=== PATIENT | male | born 1980 | race Two or more races ===

== ENCOUNTER 2021-10-18 19:52 | Emergency (ER) | payer MEDICAID, OTHER ==
[~2021-10-18] VITALS: Ht 175.3 cm; Wt 77.1 kg
[2021-10-19 07:17] VITALS: BP 145/90
[2021-10-19] MEDS ORDERED: IBUP800T27 PO (07:21)
== END 2021-10-19 07:30 | disposition home or self-care (01) ==
LOC: ER 19:55
DX: M23.91 Unspecified internal derangement of right knee (principal)
CPT/HCPCS: 73562

== ENCOUNTER 2023-09-26 17:43 | Emergency (ER) | payer MEDICAID ==
[~2023-09-26] VITALS: Ht 175.3 cm; Wt 84.2 kg
[~2023-09-26 17:43] MED LIST: IBUP-1456 PO
[2023-09-26 18:23] VITALS: BP 138/82; PULSE 70; RESP 16; TEMP 97.3; O2SAT 97
== END 2023-09-26 20:12 | disposition home or self-care (01) ==
LOC: ER 17:43
DX: M54.6 Pain in thoracic spine (principal)
CPT/HCPCS: 71046

== ENCOUNTER 2023-10-13 18:11 | Emergency (ER) | payer MEDICAID ==
[~2023-10-13] VITALS: Ht 175.3 cm; Wt 83.5 kg
[2023-10-13] MEDS ORDERED: DexAMETHasone SOD PHOS 10MG/1ML VIAL INJ IM ONE (20:30)
[2023-10-13] MEDS ORDERED: HYDROcodone-ACET 5/325MG TAB PO ONE (20:30)
[2023-10-13] MEDS ORDERED: TRIO1TP EX (20:34)
[2023-10-13] MEDS ORDERED: VALA1TAB34 PO (20:34)
[2023-10-13] MEDS ORDERED: HYDR-4902 PO (20:34)
[2023-10-13] MEDS ORDERED: DIPH25CA66 PO (20:34)
[2023-10-13 21:14] VITALS: BP 115/78; PULSE 71; RESP 16; TEMP 98; O2SAT 97
== END 2023-10-13 21:15 | disposition home or self-care (01) ==
LOC: ER 18:11
DX: R21 Rash and other nonspecific skin eruption (principal); B02.9 Zoster without complications; Z79.1 Long term (current) use of non-steroidal anti-inflammatories (NSAID)
CPT/HCPCS: 96372; 99283; J1100

== ENCOUNTER 2023-11-30 16:07 | Emergency (ER) | payer MEDICAID ==
[~2023-11-30] VITALS: Ht 175.3 cm; Wt 84.0 kg
[~2023-11-30 16:07] MED LIST changes: +DIPH25CA66 PO; +HYDR-4902 PO; +TRIO1TP EX; +VALA1TAB34 PO
[2023-11-30 17:57] LABS: COVID19 ANTIGEN SOFIA FIA NEGATIVE (NEGATIVE)
[2023-11-30 18:00] LABS: Rapid Influenza A Negative (Negative); Rapid Influenza B Negative (Negative)
[2023-11-30] MEDS ORDERED: BENZ100C97 PO (19:02)
[2023-11-30 19:13] VITALS: BP 147/98; PULSE 70; RESP 18; TEMP 97.6; O2SAT 70
== END 2023-11-30 19:13 | disposition home or self-care (01) ==
LOC: ER 16:07
DX: J40 Bronchitis, not specified as acute or chronic (principal); Z20.822 Contact with and (suspected) exposure to COVID-19
CPT/HCPCS: 36415; 87426; 87804

== ENCOUNTER 2024-11-27 19:05 | Emergency (ER) | payer MEDICAID ==
[~2024-11-27] VITALS: Ht 175.3 cm; Wt 83.7 kg
[~2024-11-27 19:05] MED LIST changes: +BENZ100C97 PO
--- NOTE | 2024-11-27 19:43 | ED.PDOC ---
GI ASSESSMENT HPI Comments 43 year old male came to ER due to abdominal pain. Patient denies any medical problems or any history of abdominal surgeries. States he has been having recurring episodes of LUQ, LLQ abdominal pain for the past 2 months, when it occurs it is a constant pain, aggravtaed by walking and movements, lasting about 2 weeks before resolving spontaneously. No check ups were done. For the past few days, recurrence of LUQ, LLQ pain, associated with nausea and diarrhea (2 days ago). He denies any recent trauma or urinary symptoms. Chief Complaint: Abdominal Pain Time Seen by MD: 19:41 Primary Care Provider: UNKNOWN Reviewed Notes: Nurses Notes Allergies: Coded Allergies: NO KNOWN ALLERGIES (Unverified , 10/18/21) Home Meds Active Scripts Benzonatate (Benzonatate) 100 Mg Cap, 1 CAP PO TID, #30 CAP Prov:ARYA PATINO PAC 11/30/23 Triamcinolone Acetonide (Triamcinolone Acetonide) 0.1 % Cre, 1 APPLIC EX BID for 14 Days, #15 MG apply to the affected area Prov:ALONZO AVERY Q SUPERVISING ARCHITECT 10/13/23 Diphenhydramine Hcl (Benadryl Allergy) 25 Mg Cap, 1 CAP PO Q6HPRN PRN, #30 CAP 1 Refill as needed for itching Prov:ALONZO AVERY Q SUPERVISING ARCHITECT 10/13/23 Hydrocodone-Acetaminophen (Hydrocodone Bitartrate/AC 5-325 mg) 1 Tab Tab, 1 TAB PO Q6HPRN PRN, #10 TAB as needed for pain Prov:ALONZO AVERY Q SUPERVISING ARCHITECT 10/13/23 Valacyclovir HCl (Valacyclovir HCl) 1 Gm Tab, 1 GM PO BID for 10 Days, #20 TAB Prov:ALONZO AVERY Q SUPERVISING ARCHITECT 10/13/23 Ibuprofen (Ibuprofen) 800 Mg Tab, 800 MG PO Q8HP PRN for 10 Days, #30 TAB Prov:DAMEON HERRERA 10/19/21 Information Source: Patient Mode of Arrival: Ambulatory Timing: Weeks Duration: Intermittent Quality: Cramping, Sharp, Stabbing Vomitus: None Stool: Loose, Watery Severity: Moderate Pain Location: LUQ, LLQ Associated sign and symptoms: Nausea, Diarrhea, Abdominal Pain Review of Systems REVIEW OF SYSTEMS: No fever, no chills, or fatigue HEENT: No sore throat, no earache, no congestion, no neck pain. Cardiac: No chest pain. No palpitations. Lungs: No shortness of breath, no cough. GI: (+) nausea, no vomiting, (+) diarrhea, no constipation, (+) left sided abdominal pain : No dysuria, frequency, or urgency. No hematuria. Musculoskeletal: No joint pain , no joint swelling, no extremity edema. Skin: No rash, no itching. Neuro: No headache, no dizziness, no weakness Vital Signs Vital Signs Date Time Temp Pulse Resp B/P (MAP) Pulse Ox O2 Delivery O2 Flow Rate FiO2 11/27/24 22:00 97.8 61 18 149/80 (103) 95 97.8 11/27/24 22:00 Room Air 11/27/24 20:15 0 21 Physical Exam General: Awake, alert and oriented. No acute distress. Skin: Skin in warm, dry and intact. Appropriate color for ethnicity. Nailbeds pink with no cyanosis. HEENT: The head is normocephalic and atraumatic. Conjunctivae are clear without exudates or hemorrhage. Sclera is non-icteric. EOM are intact. No signs of nystagmus. Eyelids are normal in appearance without swelling or lesions. Oral mucosa is pink and moist Neck: The neck is supple with normal range of motion. No JVD. Cardiac: Heart rate and rhythm are normal. No murmurs, gallops, or rubs are auscultated. Respiratory: No signs of respiratory distress. Lung sounds are clear in all lobes bilaterally without rales, ronchi, or wheezes. Abdominal: Abdomen is soft, non-tender without distention. Bowel sounds are present and normoactive in all four quadrants. Extremities: Upper and lower extremities are atraumatic in appearance without deformity or edema. Neurological: The patient is awake, alert and oriented to person, place, and time with normal speech. Speech is clear. There is no facial asymmetry. Psychiatric: Appropriate mood and affect. Good judgement and insight. No visual or auditory hallucinations. Past Medical History PAST MEDICAL HISTORY: Denies Surgical History: Denies all surgeries Family History Family History: Reviewed,noncontributory to illness Social History Smoker: Non-Smoker Alcohol: Denies ETOH Use Drugs: Denies Drug Use Lives In: Home Was a procedure done? Was a procedure done?: No GI differential Dx Differential Diagnosis: Constipation, Diverticular disease, Gastritis/PUD, Gastroenteritis, Hernia, Pancreatitis, UTI, Urolithiasis, Electrolyte Imbalance, Food Poisoning X-Ray, Labs, Meds, VS Vital Signs Date Time Temp Pulse Resp B/P (MAP) Pulse Ox O2 Delivery O2 Flow Rate FiO2 11/27/24 22:00 97.8 61 18 149/80 (103) 95 97.8 11/27/24 22:00 61 18 95 Room Air 11/27/24 20:15 73 14 97 Room Air* 0 21 11/27/24 20:15 98.4 73 14 159/99 (119) 97 98.4 11/27/24 19:28 98.6 63 16 166/106 (126) 98 98.6 Lab Test 11/27/24 19:55 11/27/24 19:32 Range/Units White Blood Count 6.8 4.4-10.8 10^3/uL Red Blood Count 5.28 4.5-5.90 10^6/uL Hemoglobin 16.0 13.5-17.5 g/dL Hematocrit 46.8 41.0-53.0 % Mean Corpuscular Volume 88.6 80.0-100.0 fL Mean Corpuscular Hemoglobin 30.3 28.0-32.0 pg Mean Corpuscular Hemoglobin Concent 34.2 32.0-36.0 g/dL Red Cell Distribution Width 13.7 11.8-14.3 % Platelet Count 156 140-450 10^3/uL Mean Platelet Volume 10.9 H 6.9-10.8 fL Neutrophils (%) (Auto) 62.1 37.0-80.0 % Lymphocytes (%) (Auto) 28.6 10.0-50.0 % Monocytes (%) (Auto) 7.1 0.0-12.0 % Eosinophils (%) (Auto) 1.6 0.0-7.0 % Basophils (%) (Auto) 0.6 0.0-2.0 % Neutrophils # (Auto) 4.2 1.6-8.6 10 ^3/uL Lymphocytes # (Auto) 2.0 0.4-5.4 10 ^3/uL Monocytes # (Auto) 0.5 0-1.3 10 ^3/uL Eosinophils # (Auto) 0.1 0-0.8 10 ^3/uL Basophils # (Auto) 0 0-0.2 10 ^3/uL Nucleated Red Blood Cells 0.2 % Sodium Level 140 136-145 mmol/L Potassium Level 3.9 3.5-5.1 mmol/L Chloride Level 103 98-107 mmol/L Carbon Dioxide Level 28 20-31 mmol/L Anion Gap 9 5-15 Blood Urea Nitrogen 16 9-23 mg/dL Creatinine 1.03 0.700-1.30 mg/dL Glomerular Filtration Rate Calc 93 >90 mL/min BUN/Creatinine Ratio 15.5 10.0-20.0 Serum Glucose 102 74-106 mg/dL Calcium Level 10.2 8.7-10.4 mg/dL Total Bilirubin 0.6 0.2-1.0 mg/dL Aspartate Amino Transferase (AST) 26 13-40 U/L Alanine Aminotransferase (ALT) 37 7-40 U/L Alkaline Phosphatase 80 46-116 U/L Total Protein 7.9 5.7-8.2 g/dL Albumin 5.0 H 3.2-4.8 g/dL Urine Color Light-yellow Yellow Urine Clarity Clear Clear Urine pH 5.5 5.0-9.0 Urine Specific [place] 1.016 1.001-1.035 Urine Protein Negative Negative Urine Ketones Negative Negative Urine Blood Negative Negative /uL Urine Nitrite Negative Negative Urine Bilirubin Negative Negative Urine Urobilinogen Normal Negative mg/dL Urine Leukocyte Esterase Negative Negative /uL Urine RBC <1 0 - 3 /hpf Urine Microscopic WBC < 1 0-3 /HPF Urine Squamous Epithelial Cells None seen <5 /hpf Urine Bacteria None seen None Seen /hpf Urine Glucose Normal Normal mg/dL Current Medications Medications (Trade) Dose Ordered Sig/Liliam Route Start Time Stop Time Status Last Admin Sodium Chloride 1,000 ml @ 1,000 mls/hr Q1H ONCE IV 11/27/24 19:45 11/27/24 20:44 DC 11/27/24 20:12 Ketorolac Tromethamine (Toradol Injection) 30 mg ONCE ONCE IV 11/27/24 19:45 11/27/24 19:46 DC 11/27/24 20:12 Time of 1ST Reevaluation: 19:35 Reevaluation 1ST: Unchanged Patient Education/Counseling: Diagnosis, Treatment Family Education/Counseling: No Family Present Departure 1 Departure Time of Disposition: 21:36 Impression: Primary Impression: Abdominal pain Disposition: 01 HOME / SELF CARE / HOMELESS Condition: Stable Additional Instructions: ED DISCHARGE INSTRUCTIONS Instructions: Please read all instructions provided in this packet carefully. Although you have been discharged from the Emergency Department, this does not mean that you have a "clean bill of health". No definitive diagnosis for your symptoms has been made today. It is possible that you are in the process of developing a serious illness. This is why you must return to the ED without fail if any new or worsening symptoms (especially if your symptoms include chest pain, trouble breathing, abdominal pain, fever, headache, confusion, trouble seeing, or trouble walking) It is also very important that you see a primary care doctor within the next 3-5 days to follow up. If you are unable to get an appointment, return to the ED for re-evaluation. Abdominal Pain: Care Instructions Overview Abdominal pain has many possible causes. Some aren't serious and get better on their own in a few days. Others need more testing and treatment. If your pain continues or gets worse, you need to be rechecked and may need more tests to find out what is wrong. You may need surgery to correct the problem. Don't ignore new symptoms, such as fever, nausea and vomiting, urination problems, pain that gets worse, and dizziness. These may be signs of a more serious problem. If you are not getting better, you may need more tests or treatment. The doctor has checked you carefully, but problems can develop later. If you notice any problems or new symptoms, get medical treatment right away. Follow-up care is a ferreira part of your treatment and safety. Be sure to make and go to all appointments, and call your doctor if you are having problems. It's also a good idea to know your test results and keep a list of the medicines you take. How can you care for yourself at home? Rest until you feel better. To prevent dehydration, drink plenty of fluids. Choose water and other clear liquids until you feel better. If you have kidney, heart, or liver disease and have to limit fluids, talk with your doctor before you increase the amount of fluids you drink. When you feel like eating, start with small amounts. Do not have alcohol, caffeine, or spicy, hot, or high-fat foods for a day or two. Avoid anti-inflammatory medicines such as aspirin, ibuprofen (Advil, Motrin), and naproxen (Aleve). These can cause stomach upset. Talk to your doctor if you take daily aspirin for another health problem. When should you call for help? Call 911 anytime you think you may need emergency care. For example, call if: You passed out (lost consciousness). You pass maroon or very bloody stools. You vomit blood or what looks like coffee grounds. You have severe belly pain. Call your doctor now or seek immediate medical care if: Your pain gets worse, especially if it becomes focused in one area of your belly. You have a new or higher fever. Your stools are black and look like tar, or they have streaks of blood. You have unexpected vaginal bleeding. You have symptoms of a urinary tract infection. These may include: Pain when you urinate. Urinating more often than usual. Blood in your urine. You are dizzy or lightheaded, or you feel like you may faint. Watch closely for changes in your health, and be sure to contact your doctor if: You are not getting better as expected. Credits for Abdominal Pain: Care Instructions Current as of: July 04, 2023 Author: Bill [email or web address], [employer] Staff Clinical Review Board All [email or web address] education is reviewed by a team that includes physicians, nurses, advanced practitioners, registered dieticians, and other healthcare professionals. Comments 43-year-old male with left lower quadrant/left flank pain. Presented with abdominal pain. No peritoneal signs on abdominal exam. No evidence of acute abdomen at this time. patient is well appearing. Labs show no leukocytosis or elevation of LFTs. Imaging shows no acute process. Patient is afebrile. Patient is not hypotensive. Low suspicion for acute hepatobiliary disease (including acute cholecystitis, acute pancreatitis, PUD (including perforation), acute infectious process (pneumonia, hepatitis, pyelonephritis), acute appendicitis, vascular catastrophe, bowel obstructions, viscous perforation. Presentation not consistent with other acute, emergent causes of abdominal pain at this time. Extensive evaluation was performed in attempt to identify or rule out: (See differential diagnosis section) The following tests were ordered, and results were reviewed by me and discussed with patient: (See diagnostic results section) I reviewed and agreed with the following test results read by other providers: CT abdomen and pelvis I reviewed the following notes from the pt's past medical encounters: N/A Additional information was gathered from interviewing the following independent historians: N/A Discussion of management or test interpretation with external physician/other qualified health care partner: N/A Decision regarding hospitalization or escalation of hospital level of care: Risks and benefits of admission for further treatment of patient's condition was considered however due to patient's stable condition patient will be discharged to follow up closely or return to care for worsening of condition or inability to follow up. Critical Care Note Critical Care Time?: No Stability Stability form required: No Heart Score Heart Score: Heart Score Response (Comments) Value History N/A 0 EKG N/A 0 Age N/A 0 Risk Factors N/A 0 Troponin N/A 0 Total 0 I personally scribed for ADELA KIDD MD ([email or web address]) on 11/27/24 at 19:43. Electronically submitted by Abelino Walker ([email or web address]). ADELA KIDD MD Nov 27, 2024 19:43
[2024-11-27 20:08] LABS: Urine Bacteria None Seen /hpf (None Seen)
[2024-11-27] MEDS: KETOROLAC TROMETH 30 MG/ML 1ML VIAL IV ONE (20:12)
[2024-11-27] MEDS: SODIUM CHLORIDE 0.9% 1,000 ML IV ONE (20:12)
[2024-11-27 20:15] VITALS: PULSE 73; RESP 14; O2SAT 97
--- NOTE | 2024-11-27 20:39 | DVH ---
CT SCAN ABDOMEN AND PELVIS WITHOUT CONTRAST CLINICAL HISTORY: Left lower quadrant/left flank pain TECHNIQUE: Helical axial images are obtained from the lung bases through the pelvis without oral cont rast. No intravenous contrast was administered. Coronal and sagittal reformatted images were generate d from thin section reconstructions. One or more of the following radiation dose reduction techniques were used for this examination: automated exposure control, adjustment of the mA and/or kV according to patient size, use of iterative reconstruction technique. COMPARISON: None FINDINGS: LOWER THORAX: Imaged lung bases are grossly clear. ABDOMEN AND PELVIS: Evaluation of visceral and vascular structures is limited due to lack of contrast administration. As visualized, the unenhanced liver, spleen, pancreas and adrenals appear grossly unremarkable. No si zable, radiopaque cholelithiasis or biliary ductal dilatation appreciated. No hydroureteronephrosis or sizable, obstructing urinary tract calculi identified. No evidence of abdominal aortic aneurysm. No evidence of bowel obstruction. No free intraperitoneal air or fluid identified. Normal caliber ap pendix. Bladder wall thickening which may be due to underdistention. No sizable bladder calculus identified. Small fat containing bilateral inguinal hernias, slightly larger on the left. No destructive osseous lesions identified. IMPRESSION: No bowel obstruction, free intraperitoneal air/fluid or sizable inflammatory collections identified o n this noncontrast examination. Urinary bladder thickening which may be in part secondary to underdistention. Correlate for possible UTI/cystitis. Small fat containing inguinal hernias, larger on the left.
[2024-11-27 20:44] LABS: Urine Blood Negative /uL (Negative); Urine Clarity Clear (Clear); Urine Color Light-Yellow (Yellow); Urine Protein, UAD Negative (Negative); Urine Specific Gravity 1.016 (1.001-1.035); Urine Squamous Epithelial Cell None Seen /hpf (<5); Urine Urobilinogen Normal (Negative); Urine WBC < 1 /HPF (0-3); Urine pH 5.5 (5.0-9.0)
[2024-11-27 20:46] LABS: Basophils # (auto) 0 10 ^3/uL (0-0.2); Basophils % (auto) 0.6 % (0.0-2.0); Eosinophils # (auto) 0.1 10 ^3/uL (0-0.8); Eosinophils % (auto) 1.6 % (0.0-7.0); Hematocrit 46.8 % (41.0-53.0); Lymphocytes % (auto) 28.6 % (10.0-50.0); Mean Corpuscular Hemoglobin 30.3 pg (28.0-32.0); Mean Corpuscular Hgb Conc. 34.2 g/dL (32.0-36.0); Mean Corpuscular Volume 88.6 fL (80.0-100.0); Monocytes # (auto) 0.5 10 ^3/uL (0-1.3); Monocytes % (auto) 7.1 % (0.0-12.0); Neutrophils # (auto) 4.2 10 ^3/uL (1.6-8.6); Neutrophils % (auto) 62.1 % (37.0-80.0); Nucleated Red Blood Cells % 0.2 %; Platelet Count (auto) 156 10^3/uL (140-450); Red Blood Cells 5.28 10^6/uL (4.5-5.90); Red Cell Distribution Width 13.7 % (11.8-14.3); White Blood Cell 6.8 10^3/uL (4.4-10.8)
[2024-11-27 21:04] LABS: Alanine Aminotransferase 37 U/L (7-40); Alkaline Phosphatase 80 U/L (46-116); Anion Gap 9 (5-15); Aspartate Aminotransferase 26 U/L (13-40); BUN/Creatinine Ratio 15.5 (10.0-20.0); Blood Urea Nitrogen 16 mg/dL (9-23); Calcium 10.2 mg/dL (8.7-10.4); Carbon Dioxide 28 mmol/L (20-31); Chloride 103 mmol/L (98-107); Glucose 102 mg/dL (74-106); Potassium 3.9 mmol/L (3.5-5.1); Sodium 140 mmol/L (136-145); Total Protein 7.9 g/dL (5.7-8.2)
[2024-11-27 21:05] LABS: Bilirubin, Total 0.6 mg/dL (0.2-1.0)
[2024-11-27 22:00] VITALS: BP 149/80; PULSE 61; RESP 18; TEMP 97.8; O2SAT 95
== END 2024-11-27 22:02 | disposition home or self-care (01) ==
LOC: ER 19:08
DX: R10.12 Left upper quadrant pain (principal); R10.32 Left lower quadrant pain; Z79.624 Long term (current) use of inhibitors of nucleotide synthesis; Z79.899 Other long term (current) drug therapy
CPT/HCPCS: 36415; 74176; 80053; 81001; 85025; 96361; 96374; 99285; J1885; J7030

== ENCOUNTER 2025-04-24 14:31 | Inpatient (IN) | payer MEDICAID ==
[~2025-04-24] VITALS: Ht 175.3 cm; Wt 77.0 kg
--- NOTE | 2025-04-24 14:47 | ED.PDOC ---
GI ASSESSMENT HPI Comments 44 year old male presents to the ED with a chief complaint of abdominal pain onset 3 days. Patient states he had pizza and wings 3 days ago, shortly after began experiencing abdominal pain, nausea, vomiting, diarrhea. Patient's siblings and friends had same food, are also experiencing similar symptoms. Denies any PMHx as well as chest pain,shortness of breath, dizziness, headache, fever, chills, dysuria, hematuria, hematemesis, melena. No other symptoms or modifying factors present at this time. Chief Complaint: Nausea/Vomiting Time Seen by MD: 14:40 Primary Care Provider: UNKNOWN Reviewed Notes: Medications, Allergies Allergies: Coded Allergies: NO KNOWN ALLERGIES (Unverified , 04/24/25) Home Meds Active Scripts Ondansetron Odt 4MG Tab (ZOFRAN PO) 4 Mg Tb, 4 MG PO DAILY for 5 Days, #5 TAB ODT TAB-DISSOLVE IN MOUTH, THEN SWALLOW Prov:ROHAN SALAS MD 04/24/25 Metronidazole (Flagyl) 500 Mg Tab, 1 TAB PO TID for 5 Days, #15 TAB Prov:ROHAN SALAS MD 04/24/25 Benzonatate (Benzonatate) 100 Mg Cap, 1 CAP PO TID, #30 CAP Prov:ARYA PATINO 11/30/23 Triamcinolone Acetonide (Triamcinolone Acetonide) 0.1 % Cre, 1 APPLIC EX BID for 14 Days, #15 MG apply to the affected area Prov:ALONZO AVERY Q [employer] 10/13/23 Diphenhydramine Hcl (Benadryl Allergy) 25 Mg Cap, 1 CAP PO Q6HPRN PRN, #30 CAP 1 Refill as needed for itching Prov:ALONZO AVERY Q [employer] 10/13/23 Hydrocodone-Acetaminophen (Hydrocodone Bitartrate/AC 5-325 mg) 1 Tab Tab, 1 TAB PO Q6HPRN PRN, #10 TAB as needed for pain Prov:ALONZO AVERY Q [employer] 10/13/23 Valacyclovir HCl (Valacyclovir HCl) 1 Gm Tab, 1 GM PO BID for 10 Days, #20 TAB Prov:ALONZO AVERY Q [employer] 10/13/23 Ibuprofen (Ibuprofen) 800 Mg Tab, 800 MG PO Q8HP PRN for 10 Days, #30 TAB Prov:DAMEON HERRERA 10/19/21 Information Source: Patient Mode of Arrival: Ambulatory Timing: Days Duration: Since onset Prehospital treatment: None Quality: Sharp Severity: Moderate Recent: None Recent Hx of: None Pain Location: Diffuse Associated sign and symptoms: Nausea, Vomiting, Diarrhea, Abdominal Pain Past Medical History PAST MEDICAL HISTORY: Denies Surgical History: Denies all surgeries Family History Family History: Reviewed,noncontributory to illness Social History Smoker: Non-Smoker Alcohol: Denies ETOH Use Drugs: Denies Drug Use Lives In: Home Constitutional: reports: sweats; denies: chills, diaphoresis, fatigue, fever, malaise, weakness, others EENTM: denies: blurred vision, double vision, ear bleeding, ear discharge, ear drainage, ear pain, ear ringing, eye pain, eye redness, hearing loss, mouth pain, mouth swelling, nasal discharge, nose bleeding, nose congestion, nose pain, photophobia, tearing, throat pain, throat swelling, voice changes, others Respiratory: denies: cough, hemoptysis, orthopnea, SOB at rest, shortness of breath, SOB with excertion, stridor, wheezing, others Cardiovascular: denies: chest pain, dizzy spells, diaphoresis, Dyspnea on exertion, edema, irregular heart beat, left arm pain, lightheadedness, palpitations, PND, syncope, others Gastrointestinal: reports: abdominal pain, diarrhea, nausea, vomiting; denies: abdomen distended, blood streaked bowels, constipated, dysphagia, difficulty swallowing, hematemesis, melena, poor appetite, poor fluid intake, rectal bleeding, rectal pain, others Genitourinary: denies: burning, dysuria, flank pain, frequency, hematuria, incontinence, penile discharge, penile sore, pain, testicle pain, testicle swelling, urgency, others Neurological: denies: dizziness, fainting, headache, left sided numbness, left sided weakness, numbness, paresthesia, pre-existing deficit, right sided numbness, right sided weakness, seizure, speech problems, tingling, tremors, weakness, others Musculoskeletal: denies: back pain, gout, joint pain, joint swelling, muscle pain, muscle stiffness, neck pain, others Integumetry: denies: bruises, change in color, change in hair/nails, dryness, laceration, lesions, lumps, rash, wounds, others Allergic/Immunocompromised: denies: Difficulty Healing, Frequent Infections, H keith, Itching, others Hematologic/Lymphatic: denies: anemia, blood clots, easy bleeding, easy bruising, swollen glands, others Endocrine: denies: excessive hunger, excessive sweating, excessive thirst, excessive urination, flushing, intolerance to cold, intolerance to heat, unexplained weight gain, unexplained weight loss, others Psychiatric: denies: anxiety, bipolar disorder, depression, hopeless, panic disorder, schizophrenia, sleepless, suicidal, others All Other Systems: Reviewed and Negative Physical Exam General Appearance: Moderate Distress, Normal HEENT: Normal ENT Inspection, Pharynx Normal, TMs Normal Neck: Full Range of Motion, Non-Tender, Normal, Normal Inspection Respiratory: Chest Non-Tender, Lungs Clear, No Accessory Muscle Use, No Respiratory Distress, Normal Breath Sounds Cardiovascular: No Edema, No JVD, No Murmur, No Gallop, Normal Peripheral Pulses, Regular Rate/Rhythm Breast Exam: Deferred Gastrointestinal: No Organomegaly, Non Tender, No Pulsatile Mass, Normal Bowel Sounds, Soft Genitalia: Deferred Pelvic: Deferred Rectal: Deferred Extremities: No calf tenderness, Normal capillary refill, Normal inspection, Normal range of motion, Non-tender, No pedal edema Musculoskeletal : Apperance: Normal Neurologic: Alert, electric motor fitter II-XII nml as Tested, No Motor Deficits, Normal Affect, Normal Mood, No Sensory Deficits Cerebellar Function: NOT DONE Reflexes: NOT DONE Skin: Dry, Normal Color, Warm Peripheral Pulses: 3+ Radial (R), 3+ Radial (L) Lymphatic: No Adenopathy Was a procedure done? Was a procedure done?: No GI differential Dx Differential Diagnosis: Constipation, Diverticular disease, Esophagitis, Gastritis/PUD, Gastroenteritis X-Ray, Labs, Meds, VS Vital Signs Date Time Temp Pulse Resp B/P (MAP) Pulse Ox O2 Delivery O2 Flow Rate FiO2 04/24/25 16:09 99.5 71 16 135/80 (98) 94 99.5 04/24/25 16:09 71 16 94 Room Air 04/24/25 14:32 98.3 94 18 126/77 98 98.3 Lab Test 04/24/25 14:51 Range/Units White Blood Count 8.3 4.4-10.8 10^3/uL Red Blood Count 5.14 4.5-5.90 10^6/uL Hemoglobin 15.9 13.5-17.5 g/dL Hematocrit 45.8 41.0-53.0 % Mean Corpuscular Volume 89.2 80.0-100.0 fL Mean Corpuscular Hemoglobin 31.0 28.0-32.0 pg Mean Corpuscular Hemoglobin Concent 34.8 32.0-36.0 g/dL Red Cell Distribution Width 13.7 11.8-14.3 % Platelet Count 144 140-450 10^3/uL Mean Platelet Volume 10.8 6.9-10.8 fL Neutrophils (%) (Auto) 89.1 H 37.0-80.0 % Lymphocytes (%) (Auto) 5.0 L 10.0-50.0 % Monocytes (%) (Auto) 5.4 0.0-12.0 % Eosinophils (%) (Auto) 0.1 0.0-7.0 % Basophils (%) (Auto) 0.4 0.0-2.0 % Neutrophils # (Auto) 7.4 1.6-8.6 10 ^3/uL Lymphocytes # (Auto) 0.4 0.4-5.4 10 ^3/uL Monocytes # (Auto) 0.4 0-1.3 10 ^3/uL Eosinophils # (Auto) 0 0-0.8 10 ^3/uL Basophils # (Auto) 0 0-0.2 10 ^3/uL Nucleated Red Blood Cells 0.1 % Sodium Level 139 136-145 mmol/L Potassium Level 3.4 L 3.5-5.1 mmol/L Chloride Level 103 98-107 mmol/L Carbon Dioxide Level 24 20-31 mmol/L Anion Gap 12 5-15 Blood Urea Nitrogen 11 9-23 mg/dL Creatinine 1.13 0.700-1.30 mg/dL Glomerular Filtration Rate Calc 83 >90 mL/min BUN/Creatinine Ratio 9.7 L 10.0-20.0 Serum Glucose 130 H 74-106 mg/dL Calcium Level 9.1 8.7-10.4 mg/dL Current Medications Medications (Trade) Dose Ordered Sig/Liliam Route Start Time Stop Time Status Last Admin Sodium Chloride 1,000 ml @ 1,000 mls/hr Q1H ONCE IV 04/24/25 14:45 04/24/25 15:44 DC 04/24/25 16:28 Ondansetron HCl (Zofran) 4 mg ONCE ONCE IV 04/24/25 14:45 04/24/25 14:46 DC 04/24/25 16:26 Potassium Bicarbonate (Klor-Con/Ef) 25 meq ONCE ONCE PO 04/24/25 16:45 04/24/25 16:46 DC 04/24/25 17:34 Ceftriaxone Sodium 50 ml @ 100 mls/hr ONCE ONCE IV 04/24/25 17:30 04/24/25 17:59 04/24/25 17:39 Metronidazole 100 ml @ 100 mls/hr ONCE ONCE IV 04/24/25 17:30 04/24/25 18:29 04/24/25 17:39 Patient alert. Complaining of nausea vomiting. Vitals stable. Answering questions. Establish intravenous access. Was given fluids. Was given Zofran. WBC within normal limits. Hemoglobin within normal limits. Abdomen is soft nontender. Potassium was slightly low. Was given potassium. Was given prescription of Flagyl Zofran. Explained to the patient. CT scan abdomen does reveal colitis. Patient insists on having severe abdominal pain. Explained to the patient that he will be admitted for pain control. Time of 1ST Reevaluation: 15:10 Reevaluation 1ST: Improved Patient Education/Counseling: Diagnosis, Treatment, Prognosis Family Education/Counseling: No Family Present SEPSIS Sepsis Screen Date sepsis recognized/suspect: Apr 24, 2025 Time Sepsis recognized/suspect: 1436 Recent Procedure: No On Antibiotic Therapy: No Respiratory Rate >20: No Heart Rate >90: Yes Temp<36 C (96.8 F) or >38.3 C: No SBP <90 or MAP <65 mmHG: No New Acute Mental Status Change: No Is the patient on CPAP, BIPAP,: No Physician Orders Ct Ab Pel Wo Con-No Oral Or Iv (04/24/25 16:37) Ceftriaxone Ivpb Rocephin (04/24/25 17:30) Metronidazole Ivpb Flagyl (04/24/25 17:30) Vital Signs Date Time Temp Pulse Resp B/P (MAP) Pulse Ox O2 Delivery O2 Flow Rate FiO2 04/24/25 16:09 99.5 71 16 135/80 (98) 94 99.5 04/24/25 16:09 71 16 94 Room Air 04/24/25 14:32 98.3 94 18 126/77 98 98.3 Laboratory Tests Test 04/24/25 14:51 White Blood Count 8.3 10^3/uL (4.4-10.8) Medications Medications Dose Ordered Sig/Liliam Route Start Time Stop Time Status Last Admin Dose Admin Ceftriaxone Sodium 50 ml @ 100 mls/hr ONCE ONCE IV 04/24/25 17:30 04/24/25 17:59 04/24/25 17:39 Metronidazole 100 ml @ 100 mls/hr ONCE ONCE IV 04/24/25 17:30 04/24/25 18:29 04/24/25 17:39 Ondansetron HCl 4 mg ONCE ONCE IV 04/24/25 14:45 04/24/25 14:46 DC 04/24/25 16:26 Potassium Bicarbonate 25 meq ONCE ONCE PO 04/24/25 16:45 04/24/25 16:46 DC 04/24/25 17:34 Sodium Chloride 1,000 ml @ 1,000 mls/hr Q1H ONCE IV 04/24/25 14:45 04/24/25 15:44 DC 04/24/25 16:28 Departure 1 Departure Time of Disposition: 16:30 Impression: Primary Impression: Hypokalemia Additional Impression: Nonspecific colitis Disposition: ADMITTED INPATIENT Admit to: Med Surg Condition: Guarded e-Prescriptions Ondansetron Odt 4MG Tab (ZOFRAN PO) 4 Mg Tb 4 MG PO DAILY for 5 Days, #5 TAB ODT TAB-DISSOLVE IN MOUTH, THEN SWALLOW Prov: ROHAN SALAS MD 04/24/25 Metronidazole (Flagyl) 500 Mg Tab 1 TAB PO TID for 5 Days, #15 TAB Prov: ROHAN SALAS MD 04/24/25 Critical Care Note Critical Care Time?: No Stability Stability form required: No I personally scribed for ROHAN SALAS MD ([email or web address]) on 04/24/25 at 14:47. Electronically submitted by Maura Nunez ([email or web address]). ROHAN SALAS MD Apr 24, 2025 14:47
[2025-04-24 15:09] LABS: Hematocrit 45.8 % (41.0-53.0); Hemoglobin 15.9 g/dL (13.5-17.5); Mean Corpuscular Hemoglobin 31.0 pg (28.0-32.0); Mean Corpuscular Volume 89.2 fL (80.0-100.0); Nucleated Red Blood Cells % 0.1 %
[2025-04-24 15:12] LABS: Chloride 103 mmol/L (98-107); Sodium 139 mmol/L (136-145)
[2025-04-24 15:13] LABS: Anion Gap 12 (5-15); Carbon Dioxide 24 mmol/L (20-31)
[2025-04-24 15:14] LABS: Calcium 9.1 mg/dL (8.7-10.4)
[2025-04-24 15:16] LABS: Potassium 3.4 mmol/L (3.5-5.1)
[2025-04-24 15:18] LABS: BUN/Creatinine Ratio 9.7 (10.0-20.0); Blood Urea Nitrogen 11 mg/dL (9-23)
[2025-04-24 15:19] LABS: Glucose 130 mg/dL (74-106)
[2025-04-24] MEDS: ONDANSETRON HCL 4 MG/2 ML VIAL IV ONE (16:26)
[2025-04-24] MEDS: SODIUM CHLORIDE 0.9% 1,000 ML IV ONE ×2 (16:28→20:01)
[2025-04-24] MEDS ORDERED: METR-344 PO (16:32)
[2025-04-24] MEDS ORDERED: ZOFR4T PO (16:32)
--- NOTE | 2025-04-24 17:04 | DVHHP2 ---
Admitting Diagnosis: abdominal pain History of Present Illness 44 year old male presents to the ED with a chief complaint of abdominal pain onset 3 days. Patient states he had pizza and wings 3 days ago, shortly after began experiencing abdominal pain, nausea, vomiting, diarrhea. Patient's siblings and friends had same food, are also experiencing similar symptoms. Denies any PMHx as well as chest pain,shortness of breath, dizziness, headache, fever, chills, dysuria, hematuria, hematemesis, melena. No other symptoms or modifying factors present at this time. PAST MEDICAL HISTORY: Denies Surgical History: Denies all surgeries Family History Family History: Reviewed,noncontributory to illness Social History Smoker: Non-Smoker Alcohol: Denies ETOH Use Drugs: Denies Drug Use Lives In: Home Allergies: Coded Allergies: NO KNOWN ALLERGIES (Unverified , 04/24/25) Home Meds Active Scripts Ondansetron Odt 4MG Tab (ZOFRAN PO) 4 Mg Tb, 4 MG PO DAILY for 5 Days, #5 TAB ODT TAB-DISSOLVE IN MOUTH, THEN SWALLOW Prov:ROHAN SALAS MD 04/24/25 Metronidazole (Flagyl) 500 Mg Tab, 1 TAB PO TID for 5 Days, #15 TAB Prov:ROHAN SALAS MD 04/24/25 Benzonatate (Benzonatate) 100 Mg Cap, 1 CAP PO TID, #30 CAP Prov:ARYA PATINO 11/30/23 Triamcinolone Acetonide (Triamcinolone Acetonide) 0.1 % Cre, 1 APPLIC EX BID for 14 Days, #15 MG apply to the affected area Prov:ALONZO AVERY Q FIRE HY[employer] MECH[employer]IC 10/13/23 Diphenhydramine Hcl (Benadryl Allergy) 25 Mg Cap, 1 CAP PO Q6HPRN PRN, #30 CAP 1 Refill as needed for itching Prov:ALONZO AVERY Q [employer]RE [employer] MECH[employer]IC 10/13/23 Hydrocodone-Acetaminophen (Hydrocodone Bitartrate/AC 5-325 mg) 1 Tab Tab, 1 TAB PO Q6HPRN PRN, #10 TAB as needed for pain Prov:ALONZO AVERY Q [employer] HY[employer] MECH[employer]IC 10/13/23 Valacyclovir HCl (Valacyclovir HCl) 1 Gm Tab, 1 GM PO BID for 10 Days, #20 TAB Prov:ALONZO AVERY Q FIRE [employer] MECH[employer]IC 10/13/23 Ibuprofen (Ibuprofen) 800 Mg Tab, 800 MG PO Q8HP PRN for 10 Days, #30 TAB Prov:DAMEON HERRERA PA 10/19/21 Vital Signs Vital Signs Date Time Temp Pulse Resp B/P (MAP) Pulse Ox O2 Delivery O2 Flow Rate FiO2 04/24/25 19:35 99.6 04/24/25 17:58 88 16 119/84 (96) 97 04/24/25 16:09 Room Air Physical Exam Generally-44 years old male, well nourished well developed. No apparent distress HEENT-atraumatic normocephalic Heart-regular rate and rhythm Lungs clear to auscultate bilaterally Abdomen soft mild tender nondistended Musculoskeletal-no edema cyanosis Neuro-AO x3, no focal deficit SEPSIS Sepsis Screen Date sepsis recognized/suspect: Apr 24, 2025 Time Sepsis recognized/suspect: 1436 Recent Procedure: No On Antibiotic Therapy: No Respiratory Rate >20: No Heart Rate >90: Yes Temp<36 C (96.8 F) or >38.3 C: No SBP <90 or MAP <65 mmHG: No New Acute Mental Status Change: No Is the patient on CPAP, BIPAP,: No Physician Orders Ct Ab Pel Wo Con-No Oral Or Iv (04/24/25 16:37) Ceftriaxone Ivpb Rocephin (04/25/25 09:00) Metronidazole Ivpb Flagyl (04/24/25 22:00) Clear Liq Diet (04/25/25 Breakfast) NS (04/24/25 20:00) Code Status (04/24/25 19:48) Vital Signs .PER UNIT PROTOCOL (04/24/25 19:48) Review Orders With Adm. (04/24/25 19:48) Encourage Activity As Tolerate (04/24/25 19:48) Sodium Chloride Lock (Saline Lock Ns) (04/24/25 22:00) Alum & Mag Hydrox-Simethicone (Maalox Pl (04/24/25 20:00) Acetaminophen Tablet (Tylenol Tablet) (04/24/25 20:00) Notify Md Of Changes From Base (04/24/25 19:48) Advance Directive (04/24/25 19:48) Patient Condition (04/24/25 19:48) Allergies (04/24/25 19:48) Hydrocodone-Acet 5/325mg Tab (Gypsum 5/32 (04/24/25 20:00) Hydromorphone Injection (Dilaudid Inject (04/24/25 20:00) Ondansetron Hcl (Zofran) (04/24/25 20:00) Lovenox 40mg (04/25/25 10:00) Admit (04/24/25 19:48) Vital Signs Date Time Temp Pulse Resp B/P (MAP) Pulse Ox O2 Delivery O2 Flow Rate FiO2 04/24/25 19:35 99.6 04/24/25 18:05 100.4 04/24/25 17:58 100.4 88 16 119/84 (96) 97 100.4 04/24/25 16:09 99.5 71 16 135/80 (98) 94 99.5 04/24/25 16:09 71 16 94 Room Air 04/24/25 14:32 98.3 94 18 126/77 98 98.3 Laboratory Tests Test 04/24/25 14:51 White Blood Count 8.3 10^3/uL (4.4-10.8) Medications Medications Dose Ordered Sig/Liliam Route Start Time Stop Time Status Last Admin Dose Admin Acetaminophen 1,000 mg ONCE ONCE PO 04/24/25 18:00 04/24/25 18:01 DC 04/24/25 18:05 Ceftriaxone Sodium 50 ml @ 100 mls/hr ONCE ONCE IV 04/24/25 17:30 04/24/25 17:59 DC 04/24/25 17:39 Metronidazole 100 ml @ 100 mls/hr ONCE ONCE IV 04/24/25 17:30 04/24/25 18:29 DC 04/24/25 17:39 Ondansetron HCl 4 mg ONCE ONCE IV 04/24/25 14:45 04/24/25 14:46 DC 04/24/25 16:26 Potassium Bicarbonate 25 meq ONCE ONCE PO 04/24/25 16:45 04/24/25 16:46 DC 04/24/25 17:34 Sodium Chloride 1,000 ml @ 1,000 mls/hr Q1H ONCE IV 04/24/25 14:45 04/24/25 15:44 DC 04/24/25 16:28 Results Labs Test 04/24/25 14:51 Range/Units White Blood Count 8.3 4.4-10.8 10^3/uL Red Blood Count 5.14 4.5-5.90 10^6/uL Hemoglobin 15.9 13.5-17.5 g/dL Hematocrit 45.8 41.0-53.0 % Mean Corpuscular Volume 89.2 80.0-100.0 fL Mean Corpuscular Hemoglobin 31.0 28.0-32.0 pg Mean Corpuscular Hemoglobin Concent 34.8 32.0-36.0 g/dL Red Cell Distribution Width 13.7 11.8-14.3 % Platelet Count 144 140-450 10^3/uL Mean Platelet Volume 10.8 6.9-10.8 fL Neutrophils (%) (Auto) 89.1 H 37.0-80.0 % Lymphocytes (%) (Auto) 5.0 L 10.0-50.0 % Monocytes (%) (Auto) 5.4 0.0-12.0 % Eosinophils (%) (Auto) 0.1 0.0-7.0 % Basophils (%) (Auto) 0.4 0.0-2.0 % Neutrophils # (Auto) 7.4 1.6-8.6 10 ^3/uL Lymphocytes # (Auto) 0.4 0.4-5.4 10 ^3/uL Monocytes # (Auto) 0.4 0-1.3 10 ^3/uL Eosinophils # (Auto) 0 0-0.8 10 ^3/uL Basophils # (Auto) 0 0-0.2 10 ^3/uL Nucleated Red Blood Cells 0.1 % Sodium Level 139 136-145 mmol/L Potassium Level 3.4 L 3.5-5.1 mmol/L Chloride Level 103 98-107 mmol/L Carbon Dioxide Level 24 20-31 mmol/L Anion Gap 12 5-15 Blood Urea Nitrogen 11 9-23 mg/dL Creatinine 1.13 0.700-1.30 mg/dL Glomerular Filtration Rate Calc 83 >90 mL/min BUN/Creatinine Ratio 9.7 L 10.0-20.0 Serum Glucose 130 H 74-106 mg/dL Calcium Level 9.1 8.7-10.4 mg/dL Primary Diagnosis Acute colitis Plan Patient says that he ate a pizza and couple friends has similar symptoms. Patient is having daily persistent diarrhea CT abdomen and pelvis shows acute pericolic colitis Start ceftriaxone Flagyl for acute colitis. low suspicion for c.diff. no abx use, immunosuppresssed or healthcare exposure. IV fluids for hydration loperamide for anti-diarrhea Clear liquid diet advance as tolerated Full code Lovenox for DVT prophylaxis no GI prophylaxis needed Plan discussed with: Patient Problems List: (1) Nonspecific colitis Status: Acute Date of Service: Apr 24, 2025 Billing Provider: DIEUDONNE LAMBERT MD Common Visit Codes: [id number] INP/OBS CARE (MOD) DIEUDONNE LAMBERT MD Apr 24, 2025 17:04
--- NOTE | 2025-04-24 17:14 | DVH ---
CT CT AB PEL WO CON-NO ORAL OR IV INDICATION: enteritis EXAM DATE: 04/24/2025 04:39 PM COMPARISON: CT CT AB PEL WO CON-NO ORAL OR IV on DOS: 11/27/24 RADIATION DOSE: CTDIvol: 7 mGy, DLP: 364 mGy*cm PROCEDURE: Helical CT images were obtained of the abdomen and pelvis without IV contrast Sagittal and coronal reconstructions are provided. ORAL CONTRAST: None. ADDITIONAL IMAGES / REFORMATS: None All C T scans at this medical facility are performed using dose modulation techniques as appropriate to a p erformed exam including the following: Automated exposure control was utilized; adjustment of the MA and/or KV according to patient size; and use of iterative reconstruction technique. FINDINGS: LUNG BASE: Normal. LIVER: Normal. GALLBLADDER AND BILIARY TREE: No calcified gallstones. Normal caliber wall. No intra- or extrahepatic biliary ductal dilation. PANCREAS: Normal. SPLEEN: Normal. BOWEL: Pericolonic inflammatory fat stranding can be seen with colitis. Normal appendix. ADRENALS: Normal. KIDNEYS AND URETER: Normal. BLADDER: Normal. REPRODUCTIVE ORGANS: Normal. LYMPH NODES:No lymphadenopathy. PERITONEUM: No ascites or free air. No other fluid collection. VESSELS: Scattered atherosclerotic calcifications are noted. RETROPERITONEUM: Normal. ABDOMINAL WALL: Normal. BONES: Scattered osseous degenerative changes are noted. IMPRESSION: Pericolonic inflammatory fat stranding can be seen with colitis.
[2025-04-24] MEDS: POTASSIUM EFFERVESENT TAB 25 MEQ PO ONE (17:34)
[2025-04-24] MEDS: cefTRIAXone 1GM/50ML D5W 50 ML IV ONE (17:39)
[2025-04-24] MEDS: ACETAMINOPHEN 500 MG TAB or CAP PO ONE (18:05)
[2025-04-24] MEDS ORDERED: ONDANSETRON HCL 4 MG/2 ML VIAL IV PRN (20:00)
[2025-04-24] MEDS ORDERED: MAALOX PLUS or MAALOX 30 ML PO PRN (20:00)
[2025-04-24] MEDS: SODIUM CHLOR 0.9% PF (SALINE LOCK) 10ML VIAL/SYR IV SCH (22:00)
[2025-04-25] MEDS: HYDROmorphone HCL 2 MG/ML VL/or syr IV PRN (00:39)
[2025-04-25 05:00] VITALS: BP 100/60; PULSE 80; RESP 20; TEMP 98.4; O2SAT 96
[2025-04-25 06:57] LABS: Hematocrit 41.5 % (41.0-53.0); Hemoglobin 14.6 g/dL (13.5-17.5); Mean Corpuscular Hemoglobin 31.2 pg (28.0-32.0); Mean Corpuscular Volume 88.4 fL (80.0-100.0); Nucleated Red Blood Cells % 0.0 %
[2025-04-25 07:19] LABS: Alanine Aminotransferase 19 U/L (7-40); Albumin 4.2 g/dL (3.2-4.8); Alkaline Phosphatase 61 U/L (46-116); Anion Gap 10 (5-15); BUN/Creatinine Ratio 7.3 (10.0-20.0); Bilirubin, Total 0.6 mg/dL (0.2-1.0); Calcium 8.9 mg/dL (8.7-10.4); Carbon Dioxide 25 mmol/L (20-31); Chloride 105 mmol/L (98-107); Glucose 104 mg/dL (74-106); Sodium 140 mmol/L (136-145); Total Protein 6.6 g/dL (5.7-8.2)
[2025-04-25 07:20] LABS: Blood Urea Nitrogen 8 mg/dL (9-23); Potassium 3.3 mmol/L (3.5-5.1)
[2025-04-25] MEDS: ACETAMINOPHEN 325 MG TAB PO PRN (07:53)
[2025-04-25] MEDS: ENOXAPARIN SOD 40 MG/0.4 ML SYRINGE SC SCH (08:21)
[2025-04-25] MEDS: LOPERAMIDE 1 mg/7.5ml ORAL soln PO PRN (08:30)
[2025-04-25 08:42] VITALS: BP 100/58; PULSE 78; RESP 20; TEMP 101; O2SAT 97
[2025-04-25 12:52] VITALS: BP 95/61; PULSE 55; RESP 20; TEMP 98.5; O2SAT 97
--- NOTE | 2025-04-25 13:23 | DVHPN2 ---
Reviewed: Care Plan, H&P, Labs, Medications, Previous Orders, Radiology Changes from previous H/P or p: No Changes Objective Vitals Vital Signs Date Time Temp Pulse Resp B/P (MAP) Pulse Ox O2 Delivery O2 Flow Rate FiO2 04/25/25 12:52 98.5 55 20 95/61 (72) 97 98.5 04/25/25 07:50 Room Air* 0 21 Intake/Output Intake and Output 04/25/25 07:00 Intake Total 150 ml Output Total 0 ml Balance 150 ml Intake Oral 0 ml IV Total 150 ml Output Urine Total 0 ml Medications Current Medications Medications Dose Ordered Sig/Liliam Route Start Time Stop Time Status Last Admin Dose Admin Ceftriaxone Sodium 50 ml @ 100 mls/hr Q24H IV 04/25/25 17:30 Metronidazole 100 ml @ 100 mls/hr Q8HR IV 04/24/25 22:00 04/25/25 06:11 100 MLS/HR Sodium Chloride 10 ml Q8HR IV 04/24/25 22:00 04/25/25 06:11 10 ML Al Hydrox/Mg Hydrox/Simethicone 30 ml Q6HP PRN PO 04/24/25 20:00 Acetaminophen 650 mg Q6HP PRN PO 04/24/25 20:00 04/25/25 07:53 650 MG Acetaminophen/ Hydrocodone Bitart 1 tab Q4HP PRN PO 04/24/25 20:00 Hydromorphone HCl 0.5 mg Q4HP PRN IV 04/24/25 20:00 04/25/25 00:39 0.5 MG Ondansetron HCl 4 mg Q4HP PRN IV 04/24/25 20:00 Enoxaparin Sodium 40 mg DAILY SC 04/25/25 10:00 Loperamide HCl 2 mg PRN PRN PO 04/24/25 20:00 04/25/25 08:30 2 MG Laboratory Results Laboratory Tests 04/25/25 04:28 Chemistry Test 04/24/25 14:51 04/25/25 04:28 Calcium Level 9.1 mg/dL (8.7-10.4) 8.9 mg/dL (8.7-10.4) Albumin 4.2 g/dL (3.2-4.8) Total Protein 6.6 g/dL (5.7-8.2) LFT Test 04/25/25 04:28 Alanine Aminotransferase (ALT) 19 U/L (7-40) Alkaline Phosphatase 61 U/L (46-116) Aspartate Amino Transferase (AST) 24 U/L (13-40) Total Bilirubin 0.6 mg/dL (0.2-1.0) Labs and/or images reviewed: Labs reviewed by me, Image(s) reviewed by me Assessment/Plan Assessment/Plan Acute Abdominal pain after eating pizza Acute colitis: Rocephin Flagyl Acute dehydration: IV fluids Gallstones ruled out Spent 45 minutes Plan discussed with: Patient Date of Service: Apr 25, 2025 Billing Provider: DEION MOORE MD Common Visit Codes: [id number] INP/OBS CARE(HIGH) DEION MOORE MD Apr 25, 2025 13:23
[2025-04-25 17:01] VITALS: BP 105/51; PULSE 69; RESP 20; TEMP 99; O2SAT 98
[2025-04-25] MEDS: cefTRIAXone 1GM/50ML D5W 50 ML IV SCH (17:22)
[2025-04-25 21:00] VITALS: BP 110/70; PULSE 64; RESP 16; TEMP 98.9; O2SAT 95
[2025-04-25] MEDS: HYDROcodone-ACET 5/325MG TAB PO PRN (21:03)
[2025-04-26 01:00] VITALS: BP 103/60; PULSE 50; RESP 16; TEMP 98.1; O2SAT 98
[2025-04-26 05:00] VITALS: BP 118/73; PULSE 66; RESP 17; TEMP 98.2; O2SAT 97
[2025-04-26 08:00] VITALS: RESP 18
[2025-04-26 08:25] LABS: Hematocrit 39.9 % (41.0-53.0); Hemoglobin 14.0 g/dL (13.5-17.5); Mean Corpuscular Hemoglobin 30.9 pg (28.0-32.0); Mean Corpuscular Volume 88.5 fL (80.0-100.0); Nucleated Red Blood Cells % 0.0 %
[2025-04-26 08:46] LABS: Alanine Aminotransferase 19 U/L (7-40); Albumin 3.9 g/dL (3.2-4.8); Alkaline Phosphatase 55 U/L (46-116); Anion Gap 10 (5-15); BUN/Creatinine Ratio 7.3 (10.0-20.0); Calcium 8.8 mg/dL (8.7-10.4); Carbon Dioxide 26 mmol/L (20-31); Chloride 106 mmol/L (98-107); Glucose 93 mg/dL (74-106); Potassium 3.8 mmol/L (3.5-5.1); Sodium 142 mmol/L (136-145); Total Protein 6.2 g/dL (5.7-8.2)
[2025-04-26 08:47] LABS: Bilirubin, Total 0.5 mg/dL (0.2-1.0); Blood Urea Nitrogen 7 mg/dL (9-23)
[2025-04-26 09:00] VITALS: BP 115/71; PULSE 61; RESP 15; TEMP 98.2; O2SAT 98
[2025-04-26] MEDS ORDERED: LEVO500T91 PO (12:28)
[2025-04-26] MEDS ORDERED: METR-344 PO (12:28)
--- NOTE | 2025-04-26 12:30 | DVHPN2 ---
Reviewed: Care Plan, H&P, Labs, Medications, Previous Orders, Radiology Changes from previous H/P or p: No Changes Objective Vitals Vital Signs Date Time Temp Pulse Resp B/P (MAP) Pulse Ox O2 Delivery O2 Flow Rate FiO2 04/26/25 09:00 98.2 61 15 115/71 (86) 98 98.2 04/25/25 20:00 Room Air* 0 21 Intake/Output Intake and Output 04/26/25 07:00 Intake Total 1100 ml Balance 1100 ml Intake Oral 800 ml IV Total 300 ml # Voids 4 # Bowel Movements 4 Medications Current Medications Medications Dose Ordered Sig/Liliam Route Start Time Stop Time Status Last Admin Dose Admin Ceftriaxone Sodium 50 ml @ 100 mls/hr Q24H IV 04/25/25 17:30 04/25/25 17:22 100 MLS/HR Metronidazole 100 ml @ 100 mls/hr Q8HR IV 04/24/25 22:00 04/26/25 05:31 100 MLS/HR Sodium Chloride 10 ml Q8HR IV 04/24/25 22:00 04/26/25 05:36 10 ML Al Hydrox/Mg Hydrox/Simethicone 30 ml Q6HP PRN PO 04/24/25 20:00 Acetaminophen 650 mg Q6HP PRN PO 04/24/25 20:00 04/25/25 07:53 650 MG Acetaminophen/ Hydrocodone Bitart 1 tab Q4HP PRN PO 04/24/25 20:00 04/25/25 21:03 1 TAB Hydromorphone HCl 0.5 mg Q4HP PRN IV 04/24/25 20:00 04/25/25 00:39 0.5 MG Ondansetron HCl 4 mg Q4HP PRN IV 04/24/25 20:00 Enoxaparin Sodium 40 mg DAILY SC 04/25/25 10:00 Loperamide HCl 2 mg PRN PRN PO 04/24/25 20:00 04/25/25 08:30 2 MG Laboratory Results Laboratory Tests 04/26/25 07:32 Chemistry Test 04/26/25 07:32 Albumin 3.9 g/dL (3.2-4.8) Calcium Level 8.8 mg/dL (8.7-10.4) Total Protein 6.2 g/dL (5.7-8.2) LFT Test 04/26/25 07:32 Alanine Aminotransferase (ALT) 19 U/L (7-40) Alkaline Phosphatase 55 U/L (46-116) Aspartate Amino Transferase (AST) 23 U/L (13-40) Total Bilirubin 0.5 mg/dL (0.2-1.0) Microbiology Microbiology Date/Time Source Procedure Growth Status 04/25/25 00:00 Stool Clostridium difficile Toxin Assay - Final Complete Labs and/or images reviewed: Labs reviewed by me, Image(s) reviewed by me Assessment/Plan Assessment/Plan Acute Abdominal pain after eating pizza Acute colitis: Rocephin Flagyl Acute dehydration: IV fluids Gallstones ruled out Spent 45 minutes Patient Feels better with no abdominal pain and wants to go home. Plan discussed with: Patient Date of Service: Apr 26, 2025 Billing Provider: DEION MOORE MD Common Visit Codes: [id number] INP/OBS CARE(HIGH) DEION MOORE MD Apr 26, 2025 12:30
--- NOTE | 2025-04-26 12:34 | DVHDS2 ---
Discharge Summary Date of Admission Apr 24, 2025 at 19:48 Date of Discharge: Apr 26, 2025 Admitting Diagnosis Acute abdominal pain Wounds: None Labs/Diagnostic Data: Laboratory Results Test 04/26/25 07:32 White Blood Count 5.5 10^3/uL (4.4-10.8) Red Blood Count 4.51 10^6/uL (4.5-5.90) Hemoglobin 14.0 g/dL (13.5-17.5) Hematocrit 39.9 % (41.0-53.0) Mean Corpuscular Volume 88.5 fL (80.0-100.0) Mean Corpuscular Hemoglobin 30.9 pg (28.0-32.0) Mean Corpuscular Hemoglobin Concent 35.0 g/dL (32.0-36.0) Red Cell Distribution Width 13.7 % (11.8-14.3) Platelet Count 140 10^3/uL (140-450) Mean Platelet Volume 11.0 fL (6.9-10.8) Neutrophils (%) (Auto) 69.2 % (37.0-80.0) Lymphocytes (%) (Auto) 17.2 % (10.0-50.0) Monocytes (%) (Auto) 11.7 % (0.0-12.0) Eosinophils (%) (Auto) 1.3 % (0.0-7.0) Basophils (%) (Auto) 0.6 % (0.0-2.0) Neutrophils # (Auto) 3.8 10 ^3/uL (1.6-8.6) Lymphocytes # (Auto) 1.0 10 ^3/uL (0.4-5.4) Monocytes # (Auto) 0.6 10 ^3/uL (0-1.3) Eosinophils # (Auto) 0.1 10 ^3/uL (0-0.8) Basophils # (Auto) 0 10 ^3/uL (0-0.2) Nucleated Red Blood Cells 0.0 % Sodium Level 142 mmol/L (136-145) Potassium Level 3.8 mmol/L (3.5-5.1) Chloride Level 106 mmol/L (98-107) Carbon Dioxide Level 26 mmol/L (20-31) Anion Gap 10 (5-15) Blood Urea Nitrogen 7 mg/dL (9-23) Creatinine 0.96 mg/dL (0.700-1.30) Glomerular Filtration Rate Calc 101 mL/min (>90) BUN/Creatinine Ratio 7.3 (10.0-20.0) Serum Glucose 93 mg/dL (74-106) Calcium Level 8.8 mg/dL (8.7-10.4) Total Bilirubin 0.5 mg/dL (0.2-1.0) Aspartate Amino Transferase (AST) 23 U/L (13-40) Alanine Aminotransferase (ALT) 19 U/L (7-40) Alkaline Phosphatase 55 U/L (46-116) Total Protein 6.2 g/dL (5.7-8.2) Albumin 3.9 g/dL (3.2-4.8) Other Laboratory Tests 04/26/25 07:32 Brief Hx & Hospital Course: 44-year-old male came in for abdominal pain after eating pizza. Found to have colitis by CT abdomen pelvis without contrast treated with Rocephin and Flagyl gallstones ruled out dehydration resolved discharged home on Levaquin and Flagyl he will follow up with his primary Dr patient feels better stable vital signs and ambulatory eating regular diet at the time of discharge Consults/Reason for consult None Operations or Procedures CT abdomen pelvis without contrast Condition at Discharge: Fair Final Diagnosis/Problems List Acute Abdominal pain after eating pizza Acute colitis: Rocephin Flagyl Acute dehydration: IV fluids Gallstones ruled out Discharge Disposition: Home Discharge Instruct/Medications Diet: Regular Activity: Light activity Follow Up/Referral: Follow up with the primary Dr Medications: Levaquin Flagyl Transmitted to pharmacy Scheduled Benzonatate (Benzonatate), 1 CAP PO TID Levofloxacin Hemihydrate (Levaquin 500 Mg), 1 TAB PO DAILY Metronidazole (Flagyl), 1 TAB PO TID Metronidazole (Flagyl), 1 TAB PO TID Ondansetron Odt 4MG Tab (Zofran Po), 4 MG PO DAILY Triamcinolone Acetonide (Triamcinolone Acetonide), 1 APPLIC EX BID Valacyclovir HCl (Valacyclovir HCl), 1 GM PO BID Scheduled PRN Diphenhydramine Hcl (Benadryl Allergy), 1 CAP PO Q6HPRN PRN Hydrocodone-Acetaminophen (Hydrocodone Bitartrate/AC 5-325 mg), 1 TAB PO Q6HPRN PRN Ibuprofen (Ibuprofen), 800 MG PO Q8HP PRN 39 (Time Taken for discharge summary 39 mts) Discharge Statement: "Patient was advised to return to the ER or call 911 if any headaches, dizziness, shortness of breath, chest pain, abdominal pain, bleeding, fevers, or worsening of medical condition. Patient was counseled about treatment plan, medications, possible side effects, patientverbalized understanding. All questions were answered to the best of my ability. This discharge took greater then 30 minutes in planning, reviewing documentation, counseling the patient, and discussing with other team members." ASSESSMENT ASSESSMENT Hospital Course Uneventful Assessment Acute Abdominal pain after eating pizza Acute colitis: Rocephin Flagyl Acute dehydration: IV fluids Gallstones ruled out Date of Service: Apr 26, 2025 Billing Provider: DEION MOORE MD Common Visit Codes: [id number] INP/OBS CARE(HIGH) DEION MOORE MD Apr 26, 2025 12:34
[2025-04-26 13:00] VITALS: BP 105/61; PULSE 71; RESP 16; TEMP 97.8; O2SAT 94
[2025-04-26 15:12] VITALS: BP 110/72; PULSE 68; RESP 18; TEMP 98.1; O2SAT 98
== END 2025-04-26 15:12 | disposition home or self-care (01) | DRG 248 ==
LOC: ER 14:31 → OVERFLOW 19:48 → WEST WING 22:28
PROVIDERS: ADMIT Family Medicine; ATTEND Family Medicine
DX: A04.9 Bacterial intestinal infection, unspecified (principal); E86.0 Dehydration; E87.6 Hypokalemia; Z79.899 Other long term (current) drug therapy
CPT/HCPCS: 36415; 74176; 80048; 80053; 85025; 87493; 96361; 96365; G0378; J2405; J3490